=== PATIENT | female | born 1950 | race Caucasian/White ===

== ENCOUNTER → 2020-03-05 | Outpatient (CLI) | payer MEDICARE, OTHER ==
[2020-03-05 15:41] LABS: Source, Urine Clean Catch
[2020-03-05 16:51] LABS: Bilirubin, Urine Neg (Neg); Blood, Urine Neg (Neg); Glucose Qualitative, Urine Neg (Neg); Ketones, Urine Neg (Neg); Leukocyte Esterase, Urine Neg (Neg); Nitrite, Urine Neg (Neg); Protein, Urine Neg (Neg); Specific Gravity, Urine 1.005 (1.003-1.022); Urobilinogen, Urine NORM (Normal)
[2020-03-05 17:06] LABS: Appearance, Urine Clear (Clear); Color, Urine Pale Yellow (P-Yellow)
== END ==
LOC: LAB SHORT 15:40 → LAB 15:40
PROVIDERS: Physician Assistant
DX: N39.41 Urge incontinence (principal); N39.3 Stress incontinence (female) (male)
CPT/HCPCS: 81003; 87086

== ENCOUNTER → 2021-03-08 | Outpatient (CLI) | payer OTHER | END | disposition home or self-care (01) | LOC: LAB SHORT 11:09 | DX: L57.0 Actinic keratosis (principal) | CPT/HCPCS: 88305 ==

== ENCOUNTER 2023-03-01 10:18 | Day surgery (SDC) | payer OTHER ==
[~2023-03-01] VITALS: Ht 175.3 cm; Wt 75.5 kg
[~2023-03-01 10:18] MED LIST: BIJUVA 1 MG-101 EAC1; DHEA 10 MG TAB1 EAC1 PO; DULO30 PO; ERGO50000 PO; ESTRADIOL42.5 GM VAG; L-Glutamine500 MG PO; LEVSOD25 PO; LUBRICANT EYE1 EAC1 BOTHEYES; MAGNESIUM CITR100 MG; MINO50 PO; OMEP20ER PO; Vitamin C100 MG PO; [UNRECOGNIZED DRUG - OTHER]
[2023-03-01 11:52] VITALS: BP 110/69
== END 2023-03-01 12:20 | disposition home or self-care (01) ==
LOC: ORSCSDS 10:18
PROVIDERS: Ophthalmology
PROC: 08RJ3JZ Replacement of Right Lens with Synthetic Substitute, Percutaneous Approach (ICD-10-PCS; principal; 2023-03-01 11:30)
DX: H25.13 Age-related nuclear cataract, bilateral (principal); K21.9 Gastro-esophageal reflux disease without esophagitis; F32.9 Major depressive disorder, single episode, unspecified; M79.7 Fibromyalgia; Z79.899 Other long term (current) drug therapy
CPT/HCPCS: J2250; J3010; J3301; J7040; V2632

== ENCOUNTER 2023-03-08 07:44 | Day surgery (SDC) | payer OTHER ==
[~2023-03-08] VITALS: Ht 175.3 cm; Wt 77.3 kg
--- NOTE | 2023-03-08 08:40 | NUR ---
03/08/23 0840 Madeleine BlackINE IN AT 0818 PLEDGETT IN AT 0820 CALL LIGHT AT BEDSIDE
[2023-03-08 09:40] VITALS: BP 113/65
--- NOTE | 2023-03-08 09:45 | NUR ---
03/08/23 0945 Niki Baltazar IV DC'D WNL, CATH INTACT. PT TOLERATED IV DC WELL. SITE WRAPPED IN COBAN.
== END 2023-03-08 09:39 | disposition home or self-care (01) ==
LOC: ORSCSDS 07:44
PROVIDERS: Ophthalmology
PROC: 08RK3JZ Replacement of Left Lens with Synthetic Substitute, Percutaneous Approach (ICD-10-PCS; principal; 2023-03-08 09:00)
DX: H25.12 Age-related nuclear cataract, left eye (principal); Z96.1 Presence of intraocular lens; K21.9 Gastro-esophageal reflux disease without esophagitis; F32.A Depression, unspecified; Z79.899 Other long term (current) drug therapy
CPT/HCPCS: J2001; J2250; J3010; J3301; J7040; V2632